=== PATIENT | female | born 1955 | race Caucasian/White ===

== ENCOUNTER 2023-01-26 10:31 | Emergency (ER) | payer OTHER, SELFPAY ==
[2023-01-26 10:53] VITALS: BP 121/78; PULSE 58; RESP 16; TEMP 35.8; O2SAT 99
--- NOTE | 2023-01-26 11:09 | ED.FEMALEGU ---
HPI - Female Genitourinary General Chief complaint: Urogenital-Female Stated complaint: urinary issue Source: patient and RN notes reviewed Mode of arrival: ambulatory Limitations: no limitations History of Present Illness HPI Narrative: 67-year-old female presented for complaint right low back pain intermittently one week, and as noticed odor to urine, with slight frequency and urine is darker in color. Denies hematuria, dysuria, flank pain, abdominal pain, n/v/d/f/c. Not taking anything for symptoms. Related Data Home Medications Medication Instructions Recorded Confirmed alprazolam 0.5 mg tablet 0.5 mg PO PRN PRN Anxiety 01/26/23 01/26/23 aspirin 81 mg chewable tablet 81 mg PO DAILY 01/26/23 01/26/23 diclofenac potassium 50 mg tablet 50 mg PO DAILY 01/26/23 01/26/23 pantoprazole 40 mg tablet,delayed 40 mg PO BID 01/26/23 01/26/23 release rosuvastatin 40 mg tablet 40 mg PO HS 01/26/23 01/26/23 valsartan 160 1 tablet PO DAILY 01/26/23 01/26/23 mg-hydrochlorothiazide 12.5 mg tablet Allergies Allergy/AdvReac Type Severity Reaction Status Date / Time No Known Allergies Allergy Verified 01/26/23 10:55 Review of Systems Review of Systems: CONSTITUTIONAL: Denies body aches, fever, chills, or sweats. CARDIOVASCULAR: Denies chest pain, palpitations, or edema. RESPIRATORY: Denies cough or dyspnea. GASTROINTESTINAL: Denies abdominal pain, nausea, vomiting, or diarrhea. GENITOURINARY: denies dysuria, frequency, urgency, hematuria, flank pain SKIN: Denies rash, itching, or wounds. MUSCULOSKELETAL: reports right lower back pain [facility] Past Medical History Medical History (Updated 01/26/23 @ 11:25 by Daniela Salas, ERICK) Hypertension Comments At time of signature, I have reviewed and agree with nursing past medical, surgical, social and family history unless otherwise noted. Please see nursing chart for further information. There is no relevant family history pertinent to the presenting complaint Exam Narrative: GENERAL: Well-appearing and in no acute distress. ENT: Mucous membranes pink and moist. CHEST: No respiratory distress. Clear to auscultation. HEART: Regular rate and rhythm. ABDOMEN: Soft, nontender, nondistended, normal active bowel sounds. No CVA tenderness MUSCULOSKELETAL: No bony tenderness. SKIN: Warm, dry, no rash. NEURO: No focal deficits. Alert and oriented x3. Gait steady. PSYCH: Normal affect. Course Course Emergency Course: Patient is aware of diagnosis, understands and agrees to treatment plan. Anticipatory guidance given. Patient agrees to follow-up as directed and is aware of reasons to seek care at the emergency department. Portions of this record may have been created with voice recognition software Level of Care: Express Care Visit Vital Signs Vital signs: Vital Signs Temperature 96.5 F L 01/26/23 10:53 Pulse Rate 58 L 01/26/23 10:53 Respiratory Rate 16 01/26/23 10:53 Blood Pressure 121/78 01/26/23 10:53 Pulse Oximetry 99 01/26/23 10:53 Oxygen Delivery Room Air 01/26/23 10:53 Temperature 96.5 F L 01/26/23 10:53 Pulse Rate 58 L 01/26/23 10:53 Respiratory Rate 16 01/26/23 10:53 Blood Pressure 121/78 01/26/23 10:53 Pulse Oximetry 99 01/26/23 10:53 Oxygen Delivery Room Air 01/26/23 10:53 Reviewed MDM - Female Genitourinary MDM Narrative Medical decision making narrative: Results of urine reviewed with patient. Discussed physical exam findings, not c/w renal colic. Advised supportive measures and signs/symptoms to go to the ER. Pt is appropriate for outpt treatment and f/u. Differential Diagnosis Differential diagnosis: Likely urinary tract infection and cystitis Lab Data Labs: Urine Glucose Negative Reference Range: Negative Urine Bilirubin Negative Reference Range: Negat
== END 2023-01-26 11:23 | disposition home or self-care (01) ==
PROVIDERS: Emergency Provider Nurse Practitioner Family
DX: M54.50 Low back pain, unspecified (principal); R35.0 Frequency of micturition; I10 Essential (primary) hypertension; Z79.82 Long term (current) use of aspirin
CPT/HCPCS: 81003; 87086; 99213; G0463